=== PATIENT | female | born 1945 | race Caucasian/White ===

== ENCOUNTER 2017-09-12 13:13 | Emergency (ER) | payer MEDICARE, OTHER ==
[2017-09-12 14:20] LABS: BASO % 0.1 % (0-6); EOS % 0.4 % (0-6); GRAN % 75.4 % (47-80); HEMOGLOBIN 11.6 gm/dl (11.6-16.0); LYMPH % 12.6 % (16-45); MEAN CELL VOLUME 86.7 fl (81-97); MEAN CORPUSCULAR HEMOGLOBIN 27.2 pg (27-33); MEAN CORPUSCULAR HGB CONC 31.4 g/dl (32-36); MEAN PLATELET VOLUME 10.3 fl (7.4-10.4); MONO % 11.5 % (0-9); PLATELET COUNT 323 K/uL (130-400); RED BLOOD COUNT 4.27 M/uL (3.80-5.40); RED CELL DISTRIBUTION WIDTH 14.4 % (11.5-14.5); WHITE BLOOD COUNT W/O DIFF 10.7 K/uL (4.2-12.2)
[2017-09-12 14:33] LABS: BLOOD UREA NITROGEN 13 mg/dL (8-23); CREATININE 0.5 mg/dL (0.5-0.9); EST GLOMERULAR FILTRATION RATE > 60 mL/min
[2017-09-12 14:36] LABS: GLUCOSE,RANDOM 102 mg/dL (74-109)
[2017-09-12] MEDS ORDERED: CLINDAMYCIN 600MG/50ML PREMIX 600 MG/50 ML BAG IVPB ONE (15:01)
--- NOTE | 2017-09-12 15:32 | Emergency Department Record ---
History of Present Illness - General Chief complaint: Extremity Problem Stated complaint: LT HAND PINKE PAIN/RED AND SWELLING Time Seen by Provider: 09/12/17 13:39 Source: Patient Mode of Arrival: Ambulatory Limitations: No limitations - History of Present Illness Initial comments: pt has redness and swelling of hand without known injury. it is painful. it started yesterday Complaint: Extremity pain, Extremity swelling Onset/Timin -: Days(s) Location: Left, Hand Quality: Aching Consistency: Getting worse Improves with: Nothing Worsens with: Palpation Associated Symptoms: Denies other symptoms - Related Data Home Medications Medication Instructions Recorded Confirmed Last Taken Albuterol Sulfate 0.083% [Neb] 3 ml NEB .EVERY 4-6 HOURS PRN 09/12/17 09/12/17 09/12/17 Diltiazem HCl [Diltiazem 24Hr ER] 240 mg PO DAILY 09/12/17 09/12/17 09/12/17 Potassium Chloride 20 meq PO ASDIR 09/12/17 09/12/17 09/12/17 Roflumilast [Daliresp] 500 mcg PO DAILY 09/12/17 09/12/17 09/12/17 Previous Rx's Medication Instructions Recorded Clindamycin HCl 150 mg PO TID #30 capsule 09/12/17 Clindamycin HCl [Cleocin HCl] 300 mg PO TID #30 capsule 09/12/17 Hydrocodone/Acetaminophen [[place] 1 each PO QID #10 tablet 09/12/17 5-325 Tablet] Allergies Allergy/AdvReac Type Severity Reaction Status Date / Time Penicillins Allergy HIVES Verified 09/12/17 14:48 Travel Screening - Travel/Exposure Within Last 30 Days Have you traveled within the last 30 days?: No - Travel/Exposure Within Last Year Have you traveled outside the [place] in the last year?: No - Additonal Travel Details Have you been exposed to anyone with a communicable illness?: No - Travel Symptoms Symptom Screening: None Review of Systems Reviewed: No additional complaints except as noted below Constitutional: Reports: As per HPI. Denies: Chills, Fever, Malaise, Night sweats, Weakness, Weight change Eyes: Reports: As per HPI. Denies: Eye discharge, Eye pain, Photophobia, Vision change ENT: Reports: As per HPI. Denies: Congestion, Dental pain, Ear pain, Epistaxis , Hearing loss, Throat pain Respiratory: Reports: As per HPI. Denies: Cough, Dyspnea, Hemoptysis, Stridor, Wheezes Cardiovascular: Reports: As per HPI. Denies: Arrhythmia, Chest pain, Dyspnea on exertion, Edema, Murmurs, Orthopnea, Palpitations, Paroxysmal nocturnal dyspnea, Rheumatic Fever, Syncope Endocrine: Reports: As per HPI. Denies: Fatigue, Heat or cold intolerance, Polydipsia, Polyuria Gastrointestinal: Reports: As per HPI. Denies: Abdominal pain, Constipation, Diarrhea, Hematemesis, Hematochezia, Melena, Nausea, Vomiting Genitourinary: Reports: As per HPI. Denies: Abnormal menses, Discharge, Dyspareunia, Dysuria, Frequency, Hematuria, Incontinence, Retention, Urgency Musculoskeletal: Reports: As per HPI. Denies: Arthralgia, Back pain, Gout, Joint swelling, Myalgia, Neck pain Skin: Reports: As per HPI. Denies: Bruising, Change in color, Change in hair/ nails, Lesions, Pruritus, Rash Neurological: Reports: As per HPI. Denies: Abnormal gait, Confusion, Headache, Numbness, Paresthesias, Seizure, Tingling, Tremors, Vertigo, Weakness Psychiatric: Reports: As per HPI. Denies: Anxiety, Auditory hallucinations, Depression, Homicidal thoughts, Suicidal thoughts, Visual hallucinations Hematological/Lymphatic: Reports: As per HPI. Denies: Anemia, Blood Clots, Easy bleeding, Easy bruising, Swollen glands Past Medical History - SOCIAL HISTORY Smoking Status: Former smoker Alcohol Use: None Drug Use: None - RESPIRATORY Hx Respiratory Disorders: Yes Hx Asthma: Yes Hx COPD: Yes Comment:: oxygen at night - CARDIOVASCULAR Hx Cardio Disorders: No - NEURO Hx Neuro Disorders: No - GI Hx GI Disorders: Yes Hx Diverticulitis: Yes - Hx Genitourinary Disorders: No - ENDOCRINE Hx Endocrine Disorders: No - MUSCULOSKELETAL Hx Musculoskeletal Disorders: Yes Hx Arthritis: Yes Comment:: gout runs in family - PSYCH Hx Psych Problems: Yes Hx Anxiety: Yes - HEMATOLOGY/ONCOLOGY Hx Hematology/Oncology Disorders: Yes Hx Cancer: Yes (mastectomy) Family Medical History Any Significant Family History?: Yes Hx Diabetes: Brother/Sister Physical Exam - General General Appearance: Alert, Oriented x3, Cooperative, Mild distress - Head Head exam: Normal inspection - Eye Eye exam: Normal appearance, PERRL, EOMI Pupils: Normal accommodation - ENT ENT exam: Normal exam, Mucous membranes moist, Normal external ear exam, Normal orophraynx Ear exam: Normal external inspection. negative: External canal tenderness Nasal Exam: Normal inspection. negative: Discharge, Sinus tenderness Mouth exam: Normal external inspection, Tongue normal Teeth exam: Normal inspection. negative: Dental caries Throat exam: Normal inspection. negative: Tonsillar erythema, Tonsillar exudate - Neck Neck exam: Normal inspection, Full ROM. negative: Tenderness - Respiratory Respiratory exam: Normal lung sounds bilaterally. negative: Respiratory distress - Cardiovascular Cardiovascular Exam: Regular rate, Normal rhythm, Normal heart sounds - GI/Abdominal GI/Abdominal exam: Soft, Normal bowel sounds. negative: Tenderness - Rectal Rectal exam: Deferred - exam: Deferred - Extremities Extremities exam: Normal inspection, Full ROM, Normal capillary refill, Tenderness Image of Hand: 1 - swelling, erthema, tender - Back Back exam: Reports: Normal inspection, Full ROM, Other (pt is able to make a fist). Denies: Muscle spasm, Rash noted, Tenderness - Neurological Neurological exam: Alert, CN II-XII intact, Normal gait, Oriented X3 - Psychiatric Psychiatric exam: Normal affect, Normal mood - Skin Skin exam: Dry, Intact, Normal color, Warm Course Vital Signs 09/12/17 09/12/17 13:27 15:13 Temperature 99.1 F 98.3 F Pulse Rate 97 H Pulse Rate [ 74 Pulse Ox Probe] Respiratory 17 16 Rate Blood Pressure 137/84 Blood Pressure 146/70 [Left Arm] Pulse Ox 97 98 Medical Decision Making - Lab Data Result diagrams: 09/12/17 14:00 09/12/17 14:00 Lab Results 09/12/17 09/12/17 Range/Units 14:00 14:00 WBC 10.7 (4.2-12.2) K/uL RBC 4.27 (3.80-5.40) M/uL Hgb 11.6 (11.6-16.0) gm/dl Hct 37.0 (35.0-47.0) % MCV 86.7 (81-97) fl MCH 27.2 (27-33) pg MCHC 31.4 L (32-36) g/dl RDW 14.4 (11.5-14.5) % Plt Count 323 (130-400) K/uL MPV 10.3 (7.4-10.4) fl Gran % 75.4 (47-80) % Lymphocytes % 12.6 L (16-45) % Monocytes % 11.5 H (0-9) % Eosinophils % 0.4 (0-6) % Basophils % 0.1 (0-6) % Sodium 140 (136-145) mmol/L Potassium 3.7 (3.4-4.5) mmol/L Chloride 100 (98-107) mmol/L Carbon Dioxide 28.0 (22-29) mmol/L Anion Gap 12.0 (7-16) BUN 13 (8-23) mg/dL Creatinine 0.5 (0.5-0.9) mg/dL Estimated GFR > 60 mL/min Random Glucose 102 (74-109) mg/dL Uric Acid 4.30 (2.4-5.7) mg/dL Calcium 9.5 (8.8-10.2) mg/dL Disposition Disposition: Discharge Clinical Impression: Cellulitis Qualifiers: Site of cellulitis: extremity Site of cellulitis of extremity: upper extremity Laterality: left Qualified Code(s): L03.114 - Cellulitis of left upper limb Disposition: Home, Self-Care Condition: (1) Good Instructions: Cellulitis (ED) Additional Instructions: recheck tomorrrow morning, return sooner if worse. elevate hand Prescriptions: Clindamycin HCl 150 mg PO TID #30 capsule Clindamycin HCl [Cleocin HCl] 300 mg PO TID #30 capsule Hydrocodone/Acetaminophen [[place] 5-325 Tablet] 1 each PO QID #10 tablet Quality - Quality Measures Quality Measures: N/A - Blood Pressure Screening Does Patient Have Any of the Following: No Blood Pressure Classification: Pre-Hypertensive BP Reading Systolic Measurement: 137 Diastolic Measurement: 84 Screening for High Blood Pressure: < Pre-Hypertensive BP, F/U Documented > [ G8950] Pre-Hypertensive Follow-up Interventions: Follow-up with rescreen every year.
--- NOTE | 2017-09-13 07:38 | RADIOLOGY REPORT ---
EXAM: LEFT HAND HISTORY: HAND PAIN. TECHNIQUE: Three views of the left hand were obtained. Comparison: None. Encounter: Initial. FINDINGS: Osteopenia with advanced degenerative changes of the first CMC joint. No radiographic evidence for acute fracture or dislocation. Mild diffuse soft tissue swelling. No soft tissue gas. IMPRESSION: OSTEOPENIA. ADVANCED DEGENERATIVE CHANGES OF THE FIRST CMC JOINT. MILD SOFT TISSUE SWELLING. JOB NUMBER: [id number] MTDD
== END 2017-09-12 16:08 | disposition home or self-care (01) ==
LOC: ER 13:13
DX: L03.114 Cellulitis of left upper limb (principal); Z87.891 Personal history of nicotine dependence
CPT/HCPCS: 80048; 84550; 85025; 96374; 99284

== ENCOUNTER 2017-09-13 06:44 | Emergency (ER) | payer MEDICARE, OTHER ==
[2017-09-13] MEDS ORDERED: CLINDAMYCIN 600MG/50ML PREMIX 600 MG/50 ML BAG IVPB ONE (07:01)
--- NOTE | 2017-09-13 07:06 | Emergency Department Record ---
History of Present Illness - General Chief Complaint: Wound, check Stated Complaint: RECHECK, LEFT HAND INFECTION Time Seen by Provider: 09/13/17 06:59 Source: Patient Mode of arrival: Ambulatory Limitations: No limitations - History of Present Illness Initial Comments: 72 yo female presents with left 5th finger erythema and swelling for about one day. She was seen in the ED. Labs and XR were preformed. She was given IV antibiotics for presumed cellulitis. She denies any injury. No skin abrasions. No pus or abscess. No initial paronychia. The area does itch. The area is less erythematous. The area of erythema has remained within the marked area. MD Complaint: Needs IV antibiotics, Wound re-check Onset/Timin -: Days(s) Initial Visit For: Cellulitis Returns Today for: Cellulitis follow-up Symptoms Since Prior Visit: No new symptoms Associated Symptoms: None Treatments Prior to Arrival: Given antibiotics on initial visit, Home treatments , Other medications - Related Data Home Medications Medication Instructions Recorded Confirmed Last Taken Albuterol Sulfate [Proair Hfa] 1 - 2 puff IH .EVERY 4-6 HOURS PRN 09/13/1709/13 Unknown Budesonide [Pulmicort] 0.5 mg INH RESP.BID 09/13/17 09/13/17 Unknown Calcium Carbonate/Vitamin D3 1 each PO DAILY 09/13/17 09/13/17 Unknown [Calcium 600-Vit D3 200 Tablet] Ergocalciferol (Vitamin D2) 1 tab PO WEEKLY 09/13/17 09/13/17 Unknown [Vitamin D2] Fexofenadine HCl [[place] Allergy] 180 mg PO DAILY 09/13/17 09/13/17 Unknown Formoterol Fumarate [Perforomist] 20 mcg IH DAILY 09/13/17 09/13/17 Unknown Ipratropium/Albuterol [Duoneb] 3 ml INH BID 09/13/17 09/13/17 Unknown Magnesium Oxide [Magnesium] 500 mg PO DAILY 09/13/17 09/13/17 Unknown Multivitamin [Daily Multiple 1 each PO DAILY 09/13/17 09/13/17 Unknown Vitamin] Multivitamin [Multi-Vitamin Daily] 1 tab PO DAILY 09/13/17 09/13/17 Unknown Pantoprazole Sodium 40 mg PO DAILY 09/13/17 09/13/17 Unknown Potassium Chloride [Klor-Con M20] 20 meq PO DAILY 09/13/17 09/13/17 Unknown Pravastatin Sodium [Pravachol] 40 mg PO DAILY 09/13/17 09/13/17 Unknown Previous Rx's Medication Instructions Recorded Clindamycin HCl 150 mg PO TID #30 capsule 09/12/17 Clindamycin HCl [Cleocin HCl] 300 mg PO TID #30 capsule 09/12/17 Allergies Allergy/AdvReac Type Severity Reaction Status Date / Time Penicillins Allergy HIVES Verified 09/12/17 14:48 Travel Screening - Travel/Exposure Within Last 30 Days Have you traveled within the last 30 days?: No - Travel Symptoms Symptom Screening: None Review of Systems Constitutional: Denies: Chills, Fever, Weakness Eyes: Denies: Eye discharge, Eye pain, Vision change ENT: Denies: Congestion, Throat pain Respiratory: Denies: Cough, Dyspnea Cardiovascular: Denies: Chest pain, Syncope Endocrine: Denies: Fatigue Gastrointestinal: Denies: Abdominal pain, Diarrhea, Nausea, Vomiting Genitourinary: Denies: Dysuria, Urgency Musculoskeletal: Reports: Joint swelling. Denies: Arthralgia, Back pain, Myalgia, Neck pain Skin: Reports: Change in color, Rash. Denies: Bruising Neurological: Denies: Headache Hematological/Lymphatic: Denies: Anemia, Easy bleeding, Easy bruising, Swollen glands Past Medical History - SOCIAL HISTORY Smoking Status: Former smoker Alcohol Use: None Drug Use: None - RESPIRATORY Hx Respiratory Disorders: Yes Hx Asthma: Yes Hx COPD: Yes Comment:: oxygen at night - CARDIOVASCULAR Hx Cardio Disorders: No - NEURO Hx Neuro Disorders: No - GI Hx GI Disorders: Yes Hx Diverticulitis: Yes - Hx Genitourinary Disorders: No - ENDOCRINE Hx Endocrine Disorders: No - MUSCULOSKELETAL Hx Musculoskeletal Disorders: Yes Hx Arthritis: Yes Comment:: gout runs in family - PSYCH Hx Psych Problems: Yes Hx Anxiety: Yes - HEMATOLOGY/ONCOLOGY Hx Hematology/Oncology Disorders: Yes Hx Cancer: Yes (mastectomy) Family Medical History Any Significant Family History?: Yes Hx Diabetes: Brother/Sister Physical Exam - General General Appearance: Alert, Oriented x3, Cooperative, No acute distress Limitations: No limitations - Head Head exam: Normal inspection - Eye Eye exam: Normal appearance, PERRL. negative: Conjunctival injection - ENT ENT exam: Normal exam, Mucous membranes moist Ear exam: Normal external inspection Nasal Exam: Normal inspection Mouth exam: Normal external inspection - Neck Neck exam: Normal inspection, Full ROM. negative: Tenderness - Respiratory Respiratory exam: Normal lung sounds bilaterally. negative: Respiratory distress - Cardiovascular Cardiovascular Exam: Regular rate, Normal rhythm, Normal heart sounds Peripheral Pulses: 2+: Radial (L) - Rectal Rectal exam: Deferred - exam: Deferred - Extremities Extremities exam: Joint swelling, Normal capillary refill, Tenderness. negative : Full ROM (mild diffuse swelling) Image of Hand: 1 - mild erythema and swelling, no signs of fluctuance, no paronychia, minimal to no warmth, well within the marked lines of prior visit - Neurological Neurological exam: Alert, Oriented X3 - Psychiatric Psychiatric exam: Normal affect, Normal mood - Skin Skin exam: Erythema Course - Reevaluation(s) Reevaluation #1: 09/13/17 07:08 The patient chart was reviewed form the initial visit The swelling and redness are mild without any worsening and well within the lines marked No signs of abscess and not likely flexor tenosynovitis. No significant pain. Mainly itches. The patient has only had 2 doses of antibiotics and can continue outpatient treatment with close follow up in the ED or PCP 09/13/17 08:05 Disposition Disposition: Discharge Clinical Impression: Cellulitis Qualifiers: Site of cellulitis: extremity Site of cellulitis of extremity: upper extremity Laterality: left Qualified Code(s): L03.114 - Cellulitis of left upper limb Disposition: Home, Self-Care Condition: (1) Good Instructions: Cellulitis (ED) Additional Instructions: Return to the ER in 24 for hours for a recheck Return sooner if worse, fever or any new concerns Call your doctor for close follow up today Continue the Clindamycin as directed Elevate the hand as much as possible You may take Benadryl as directed for hand itching Forms: Patient Portal Access Quality - Quality Measures Quality Measures: N/A - Blood Pressure Screening Does Patient Have Any of the Following: No Blood Pressure Classification: Normal BP Reading Systolic Measurement: 113 Diastolic Measurement: 75 Screening for High Blood Pressure: < Normal BP, F/U Not Required > [G8783] Pre-Hypertensive Follow-up Interventions: Referral to alternative/primary care provider.
== END 2017-09-13 08:01 | disposition home or self-care (01) ==
LOC: ER 06:44
DX: L03.114 Cellulitis of left upper limb (principal)
CPT/HCPCS: 99282

== ENCOUNTER 2017-09-15 19:59 | Emergency (ER) | payer MEDICARE, OTHER ==
[2017-09-15] MEDS ORDERED: CLINDAMYCIN 150 MG CAP PO ONE (20:25)
--- NOTE | 2017-09-15 20:31 | Emergency Department Record ---
History of Present Illness - General Chief Complaint: Wound, check Stated Complaint: RECHECK LEFT HAND Time Seen by Provider: 09/15/17 20:06 Source: Patient Mode of arrival: Ambulatory Limitations: No limitations - History of Present Illness Initial Comments: pts hand is better. decreased swelling, redness, pain. pt states pharmacy only gave her 150mg clindamycin and did not give her 300mg rx. Complaint: Wound re-check Onset/Timin -: Days(s) Initial Visit For: Cellulitis Returns Today for: Wound recheck Symptoms Since Prior Visit: Improved Associated Symptoms: Other Treatments Prior to Arrival: Given antibiotics on initial visit - Related Data Previous Rx's Medication Instructions Recorded Clindamycin HCl 150 mg PO TID #30 capsule 09/12/17 Clindamycin HCl [Cleocin HCl] 300 mg PO TID #30 capsule 09/12/17 Clindamycin HCl 300 mg PO TID #20 capsule 09/15/17 Allergies Allergy/AdvReac Type Severity Reaction Status Date / Time Penicillins Allergy HIVES Verified 09/12/17 14:48 Travel Screening - Travel/Exposure Within Last 30 Days Have you traveled within the last 30 days?: No - Travel/Exposure Within Last Year Have you traveled outside the [place] in the last year?: No - Additonal Travel Details Have you been exposed to anyone with a communicable illness?: No - Travel Symptoms Symptom Screening: None Review of Systems Reviewed: No additional complaints except as noted below Constitutional: Reports: As per HPI. Denies: Chills, Fever, Malaise, Night sweats, Weakness, Weight change Eyes: Reports: As per HPI. Denies: Eye discharge, Eye pain, Photophobia, Vision change ENT: Reports: As per HPI. Denies: Congestion, Dental pain, Ear pain, Epistaxis , Hearing loss, Throat pain Respiratory: Reports: As per HPI. Denies: Cough, Dyspnea, Hemoptysis, Stridor, Wheezes Cardiovascular: Reports: As per HPI. Denies: Arrhythmia, Chest pain, Dyspnea on exertion, Edema, Murmurs, Orthopnea, Palpitations, Paroxysmal nocturnal dyspnea, Rheumatic Fever, Syncope Endocrine: Reports: As per HPI. Denies: Fatigue, Heat or cold intolerance, Polydipsia, Polyuria Gastrointestinal: Reports: As per HPI. Denies: Abdominal pain, Constipation, Diarrhea, Hematemesis, Hematochezia, Melena, Nausea, Vomiting Genitourinary: Reports: As per HPI. Denies: Abnormal menses, Discharge, Dyspareunia, Dysuria, Frequency, Hematuria, Incontinence, Retention, Urgency Musculoskeletal: Reports: As per HPI. Denies: Arthralgia, Back pain, Gout, Joint swelling, Myalgia, Neck pain Skin: Reports: As per HPI. Denies: Bruising, Change in color, Change in hair/ nails, Lesions, Pruritus, Rash Neurological: Reports: As per HPI. Denies: Abnormal gait, Confusion, Headache, Numbness, Paresthesias, Seizure, Tingling, Tremors, Vertigo, Weakness Psychiatric: Reports: As per HPI. Denies: Anxiety, Auditory hallucinations, Depression, Homicidal thoughts, Suicidal thoughts, Visual hallucinations Hematological/Lymphatic: Reports: As per HPI. Denies: Anemia, Blood Clots, Easy bleeding, Easy bruising, Swollen glands Past Medical History - SOCIAL HISTORY Smoking Status: Former smoker Alcohol Use: None Drug Use: None - RESPIRATORY Hx Respiratory Disorders: Yes Hx Asthma: Yes Hx COPD: Yes Comment:: oxygen at night - CARDIOVASCULAR Hx Cardio Disorders: No - NEURO Hx Neuro Disorders: No - GI Hx GI Disorders: Yes Hx Diverticulitis: Yes - Hx Genitourinary Disorders: No - ENDOCRINE Hx Endocrine Disorders: No - MUSCULOSKELETAL Hx Musculoskeletal Disorders: Yes Hx Arthritis: Yes Comment:: gout runs in family - PSYCH Hx Psych Problems: Yes Hx Anxiety: Yes - HEMATOLOGY/ONCOLOGY Hx Hematology/Oncology Disorders: Yes Hx Cancer: Yes (mastectomy) Family Medical History Any Significant Family History?: No Hx Diabetes: Brother/Sister Physical Exam - General General Appearance: Alert, Oriented x3, Cooperative, Mild distress - Head Head exam: Normal inspection - Eye Eye exam: Normal appearance, PERRL, EOMI Pupils: Normal accommodation - ENT ENT exam: Normal exam, Mucous membranes moist, Normal external ear exam, Normal orophraynx Ear exam: Normal external inspection. negative: External canal tenderness Nasal Exam: Normal inspection. negative: Discharge, Sinus tenderness Mouth exam: Normal external inspection, Tongue normal Teeth exam: Normal inspection. negative: Dental caries Throat exam: Normal inspection. negative: Tonsillar erythema, Tonsillar exudate - Neck Neck exam: Normal inspection, Full ROM. negative: Tenderness - Respiratory Respiratory exam: Normal lung sounds bilaterally. negative: Respiratory distress - Cardiovascular Cardiovascular Exam: Regular rate, Normal rhythm, Normal heart sounds - GI/Abdominal GI/Abdominal exam: Soft, Normal bowel sounds. negative: Tenderness - Rectal Rectal exam: Deferred - exam: Deferred - Extremities Extremities exam: Normal inspection, Full ROM, Normal capillary refill. negative: Tenderness - Back Back exam: Reports: Normal inspection, Full ROM. Denies: Muscle spasm, Rash noted, Tenderness - Neurological Neurological exam: Alert, CN II-XII intact, Normal gait, Oriented X3 - Psychiatric Psychiatric exam: Normal affect, Normal mood - Skin Skin exam: Dry, Intact, Normal color, Warm Course Vital Signs 09/15/17 20:05 Temperature 98.0 F Pulse Rate [ 82 Pulse Ox Probe] Respiratory 18 Rate Blood Pressure 145/78 [Left Arm] Pulse Ox 97 Disposition Disposition: Discharge Clinical Impression: Cellulitis of hand Disposition: Home, Self-Care Condition: (1) Good Instructions: Cellulitis (ED) Additional Instructions: follow up with family doctor. rest , soak and elevate hand. continue antibiotics. return sooner if worse Prescriptions: Clindamycin HCl 300 mg PO TID #20 capsule Quality - Quality Measures Quality Measures: N/A - Blood Pressure Screening Does Patient Have Any of the Following: No Blood Pressure Classification: Hypertensive Reading Systolic Measurement: 145 Diastolic Measurement: 78 Screening for High Blood Pressure: < First Hypertensive BP, F/U Documented > [ G8950] First Hypertensive Follow-up Interventions: Follow-up with rescreen GT 1 day and LT 4 weeks.
== END 2017-09-15 20:42 | disposition home or self-care (01) ==
LOC: ER 19:59
DX: L03.114 Cellulitis of left upper limb (principal); Z87.891 Personal history of nicotine dependence
CPT/HCPCS: 99282

== ENCOUNTER 2018-09-09 20:57 | Emergency (ER) | payer MEDICARE, OTHER ==
[2018-09-09] MEDS ORDERED: CLINDAMYCIN 600MG/50ML PREMIX 600 MG/50 ML BAG IVPB ONE (21:08)
--- NOTE | 2018-09-09 21:15 | Emergency Department Record ---
History of Present Illness - General Chief complaint: Pain Stated complaint: LEFT ELBOW PAIN Time Seen by Provider: 09/09/18 21:00 Source: Patient Mode of Arrival: Ambulatory Limitations: No limitations - History of Present Illness Initial comments: 73 yo female presents with left forearm warmth and redness. The onset was three days ago. She noted a small pimple on the left forearm that she was picking. No pus. Over the last 1-2 days the area has become gradually more warm and red with mild swelling. No joint pain or limitations. One year ago she had a left finger soft tissue infection. She has been in remission 17 years for breast cancer. She is on weekly injections for her breast caner remission. No hand swelling. No shoulder pain. No olecranon pain. No limitation of elbow joint pain. MD Complaint: Extremity pain Onset/Timin -: Days(s) (3) Location: Left History of Same: Yes Radiation: Other Severity scale (1-10): 5 Quality: Aching, Other (itches) Consistency: Constant, Getting worse Improves with: Nothing Worsens with: Nothing Associated Symptoms: Rash - Related Data Home Medications Medication Instructions Recorded Confirmed Last Taken Albuterol Sulfate [Ventolin Hfa] 2 puff INH RESP.Q4H PRN 09/09/18 09/09/18 Unknown Budesonide [Pulmicort] 0.5 mg IH Q12H 09/09/18 09/09/18 Unknown Ipratropium Br. 0.02% Neb 0.5 mg INH QID 09/09/18 09/09/18 Unknown [Atrovent 0.02% Neb] Loratadine [Claritin] 10 mg PO DAILY 09/09/18 09/09/18 Unknown Paroxetine HCl [Paxil] 10 mg PO DAILY 09/09/18 09/09/18 Unknown Previous Rx's Medication Instructions Recorded Clindamycin HCl 300 mg PO Q6H #28 capsule 09/09/18 Allergies Allergy/AdvReac Type Severity Reaction Status Date / Time Penicillins Allergy HIVES Verified 09/12/17 14:48 Travel Screening - Travel/Exposure Within Last 30 Days Have you traveled within the last 30 days?: No - Travel Symptoms Symptom Screening: None Review of Systems Constitutional: Denies: Chills, Fever, Night sweats, Weakness Eyes: Denies: Eye discharge, Eye pain, Photophobia, Vision change ENT: Denies: Congestion, Throat pain Respiratory: Denies: Cough, Dyspnea Cardiovascular: Denies: Chest pain, Syncope Endocrine: Denies: Fatigue Gastrointestinal: Denies: Abdominal pain, Diarrhea, Nausea, Vomiting Genitourinary: Denies: Dysuria Musculoskeletal: Denies: Arthralgia, Back pain, Joint swelling, Neck pain Skin: Reports: Change in color, Rash Neurological: Denies: Headache Psychiatric: Denies: Anxiety Hematological/Lymphatic: Denies: Easy bleeding, Easy bruising Past Medical History - SOCIAL HISTORY Smoking Status: Former smoker Drug Use: None - RESPIRATORY Hx Respiratory Disorders: Yes Hx Asthma: Yes Hx COPD: Yes Comment:: oxygen at night - CARDIOVASCULAR Hx Cardio Disorders: No - NEURO Hx Neuro Disorders: No - GI Hx GI Disorders: Yes Hx Diverticulitis: Yes - Hx Genitourinary Disorders: No - ENDOCRINE Hx Endocrine Disorders: No - MUSCULOSKELETAL Hx Musculoskeletal Disorders: Yes Hx Arthritis: Yes Comment:: gout runs in family - PSYCH Hx Psych Problems: Yes Hx Anxiety: Yes - HEMATOLOGY/ONCOLOGY Hx Hematology/Oncology Disorders: Yes Hx Cancer: Yes (mastectomy) Family Medical History Hx Diabetes: Brother/Sister Physical Exam - General General Appearance: Alert, Oriented x3, Cooperative, No acute distress Limitations: No limitations - Head Head exam: Atraumatic, Normal inspection - Eye Eye exam: Normal appearance. negative: Conjunctival injection, Scleral icterus - ENT ENT exam: Normal exam, Mucous membranes moist Ear exam: Normal external inspection Nasal Exam: Normal inspection Mouth exam: Normal external inspection - Neck Neck exam: Normal inspection - Respiratory Respiratory exam: Normal lung sounds bilaterally. negative: Respiratory distress - Cardiovascular Cardiovascular Exam: Regular rate, Normal rhythm, Normal heart sounds Peripheral Pulses: 2+: Radial (L) - Rectal Rectal exam: Deferred - exam: Deferred - Extremities Extremities exam: Full ROM, Normal capillary refill, Tenderness. negative: Normal inspection Image of Full Body: 1 - 5mm papule crusted over, mild swelling and warmth with erythema, no fluctuance 2 - no olecranon tenderness, full unlimitied ROM of the elbow joint, no sign of joint involement - Back Back exam: Reports: Normal inspection - Neurological Neurological exam: Alert, Oriented X3 - Psychiatric Psychiatric exam: Normal affect, Normal mood - Skin Skin exam: Erythema Course Vital Signs 09/09/18 21:04 Temperature 98.1 F Pulse Rate 79 Respiratory 20 Rate Blood Pressure 155/81 Pulse Ox 95 - Reevaluation(s) Reevaluation #1: The vitals were reviewed. No fever, tachycardia. No signs of joint involvement or olecranon involvement No clinical signs of abscess or fluctuance/drainage IV Clindamycin given in the ED with RX provided 09/09/18 21:15 09/09/18 21:52 No acute changes on the CBC or BMP 09/09/18 21:56 CRP is 1.89 We discussed the plan with antibiotics every 6 hours, reasons to return to the ED and close follow up with her PCP 09/09/18 21:56 Medical Decision Making - Lab Data Result diagrams: 09/09/18 21:15 09/09/18 21:15 Disposition Disposition: Discharge Clinical Impression: Cellulitis Qualifiers: Site of cellulitis: extremity Site of cellulitis of extremity: upper extremity Laterality: left Qualified Code(s): L03.114 - Cellulitis of left upper limb Disposition: Home, Self-Care Condition: (1) Good Instructions: Cellulitis (ED) Additional Instructions: Keep the arm elevated to minimize swelling Take the antibiotic every 6 hours as directed Return if worse, fever, increased pain or any new concerns Prescriptions: Clindamycin HCl 300 mg PO Q6H #28 capsule Forms: Patient Portal Access Time of Disposition: 21:55 Quality - Quality Measures Quality Measures: N/A - Blood Pressure Screening Does Patient Have Any of the Following: No Blood Pressure Classification: Pre-Hypertensive BP Reading Systolic Measurement: 155 Diastolic Measurement: 81 Screening for High Blood Pressure: < Pre-Hypertensive BP, F/U Documented > [ [id number]] Pre-Hypertensive Follow-up Interventions: Referral to alternative/primary care provider.
[2018-09-09] MEDS ORDERED: CLINDAMYCIN 150 MG CAP PO ONE (21:18)
[2018-09-09 21:37] LABS: BASO % 0.1 % (0-6); EOS % 0.8 % (0-6); GRAN % 68.3 % (47-80); HEMOGLOBIN 11.9 gm/dl (11.6-16.0); LYMPH % 20.4 % (16-45); MEAN CELL VOLUME 87.4 fl (81-97); MEAN CORPUSCULAR HEMOGLOBIN 27.4 pg (27-33); MEAN CORPUSCULAR HGB CONC 31.3 g/dl (32-36); MEAN PLATELET VOLUME 10.6 fl (7.4-10.4); MONO % 10.4 % (0-9); PLATELET COUNT 323 K/uL (130-400); RED BLOOD COUNT 4.35 M/uL (3.80-5.40); RED CELL DISTRIBUTION WIDTH 14.2 % (11.5-14.5); WHITE BLOOD COUNT W/O DIFF 8.9 K/uL (4.2-12.2)
[2018-09-09 21:46] LABS: BLOOD UREA NITROGEN 20 mg/dL (8-23); CREATININE 0.6 mg/dL (0.5-0.9); EST GLOMERULAR FILTRATION RATE > 60 mL/min
[2018-09-09 21:49] LABS: GLUCOSE,RANDOM 106 mg/dL (74-109)
[2018-09-09 21:52] LABS: C-REACTIVE PROTEIN 1.89 mg/dL (<0.5)
== END 2018-09-09 22:10 | disposition home or self-care (01) ==
LOC: ER 20:57
DX: L03.114 Cellulitis of left upper limb (principal)
CPT/HCPCS: 80048; 85025; 86140; 96365; 99284